=== PATIENT | female | born 1955 | race Caucasian/White ===

== ENCOUNTER 2017-10-10 10:51 | Outpatient (CLI) | payer BC, OTHER | END 2017-10-10 21:13 | disposition home or self-care (01) | LOC: SMA 10:51 | PROVIDERS: ATTEND Internal Medicine | DX: Z12.31 Encounter for screening mammogram for malignant neoplasm of breast (principal) | CPT/HCPCS: 77067 ==

== ENCOUNTER 2020-01-28 09:54 | Outpatient (CLI) | payer BC, OTHER | END 2020-01-28 20:47 | disposition home or self-care (01) | LOC: SMA 09:54 | DX: Z12.31 Encounter for screening mammogram for malignant neoplasm of breast (principal) | CPT/HCPCS: 77067 ==

== ENCOUNTER 2022-04-14 11:35 | Outpatient (CLI) | payer OTHER, BC | END 2022-04-14 19:01 | disposition home or self-care (01) | LOC: SMA 11:35 | PROVIDERS: ATTEND Internal Medicine | DX: Z12.31 Encounter for screening mammogram for malignant neoplasm of breast (principal) | CPT/HCPCS: 77067 ==